=== PATIENT | female | born 1995 | race Two or more races ===

== ENCOUNTER 2023-08-31 10:52 | Observation (INO) ==
--- NOTE | 2023-08-31 12:41 | US ---
EXAM: BIOPHYSICAL PROFILE HISTORY: FETALGROWTH DISCREPANCY IN TWINS; COMPARISON: None. TECHNIQUE: Grayscale and color Doppler imaging of the gravid uterus with biophysical profile analysis FINDINGS: Twin A: A viable single intrauterine is identified with heart tones of 155 beats per minute. Normal amniotic fluid volume is observed with an MARCELINO of 9.1 cm. There is no sonographic evidence for placenta previa. presentation is cephalic. The placenta l ocation is anterior/fundal, grade 2 on this examination. BPP Value(s) Breathin movements: 2 tone: 2 MARCELINO: 2 Total biophysical profile: 8 out of 8. Twin B: A viable single intrauterine is identified with heart tones of 136 beats per minute. Normal amniotic fluid volume is observed with an MARCELINO of 9.1 cm. There is no sonographic evidence for placenta previa. presentation is transverse. The placenta location is anterior/fundal, grade 2 on this examination. BPP Value(s) Breathin movements: 2 tone: 2 MARCELINO: 2 Total biophysical profile: 8 out of 8. IMPRESSION: Twin A: Single, live, IUP with biophysical profile score 8 of 8. Twin B: Single, live, IUP with biophysical profile score 8 of 8. THIS IS AN ELECTRONICALLY VERIFIED FINAL REPORT 08/31/2023 12:38 PM - Electronically signed by Artis Wynn MD
[2023-08-31 12:42] LABS: BASOPHILS # (AUTO) 0.1 X10^3/uL (0.0-0.1); BASOPHILS % (AUTO) 0.5 % (0.2-1.0); EOSINOPHILS # (AUTO) 0.1 x10^3/uL (0.0-0.2); EOSINOPHILS % (AUTO) 1.2 % (0.9-2.9); HEMATOCRIT 35.3 % (36.0-47.0); HEMOGLOBIN 11.4 g/dL (12.0-16.0); LYMPHOCYTES # (AUTO) 1.5 X10^3/uL (1.3-2.9); LYMPHOCYTES % (AUTO) 13.6 % (21.0-51.0); MEAN CORPUSCULAR HEMOGLOBIN 26.4 pg (27.0-34.0); MEAN CORPUSCULAR HGB CONC 32.3 g/dL (33.0-35.0); MEAN CORPUSCULAR VOLUME 81.8 fL (80.0-100.0); MEAN PLATELET VOLUME 8.5 fL (7.4-11.0); MONOCYTES # (AUTO) 0.9 x10^3/uL (0.3-0.8); NEUTROPHILS # (AUTO) 8.7 x10^3/uL (2.2-4.8); NEUTROPHILS % (AUTO) 76.7 % (42.0-75.0); PLATELET COUNT 254 X10^3/uL (150.0-450.0); RED BLOOD COUNT 4.32 X10^6/uL (3.5-5.4); RED CELL DISTRIBUTION WIDTH 27.5 % (11.6-16.5); WHITE BLOOD COUNT 11.3 X10^3/uL (3.6-10.0)
[2023-08-31 12:46] LABS: BLOOD UREA NITROGEN 3 mg/dL (7-18); CALCIUM 8.8 mg/dL (8.5-10.1); CARBON DIOXIDE 22.9 mmol/L (21-32); CHLORIDE 103 mmol/L (98-107); CREATININE 0.38 mg/dL (0.55-1.02); GLUCOSE 80 mg/dL (65-99); POTASSIUM 3.7 mmol/L (3.5-5.1); SODIUM 136 mmol/L (136-145); eGFR NON BLACK RACES > 60 (>60)
[2023-08-31 13:08] LABS: BILIRUBIN,URINE NEGATIVE (NEGATIVE); BLOOD/HEMOGLOBIN,URINE 1+ (NEGATIVE); GLUCOSE, URINE NEGATIVE (NEGATIVE); KETONES,URINE NEGATIVE (NEGATIVE); LEUKOCYTE ESTERASE ,URINE 1+ (NEGATIVE); NITRITES,URINE NEGATIVE (NEGATIVE); PROTEIN,URINE 1+ (NEGATIVE); UROBILINOGEN,URINE NORMAL (NORMAL)
[2023-08-31 13:12] LABS: APPEARANCE,URINE CLEAR (CLEAR); COLOR,URINE YELLOW (YELLOW)
[2023-08-31 13:15] LABS: BACTERIA,URINE TRACE /HPF (NEGATIVE); SQUAMOUS EPITHELIAL CELL,UR MODERATE /HPF (NEGATIVE); TRANSITIONAL EPI CELLS,URINE FEW /HPF (NEGATIVE)
[2023-08-31 13:28] LABS: ANISOCYTOSIS 3+; PLATELET MORPHOLOGY COMMENT NORMAL (NORMAL)
[2023-08-31 13:43] LABS: RAPID PLASMA REAGIN NONREACTIVE (NONREACTIVE)
[2023-08-31 16:45] VITALS: BP 96/51; PULSE 73
== END 2023-08-31 17:28 | disposition home or self-care (01) ==
LOC: LD 10:52 → RAD 10:52
PROVIDERS: ADMIT Obstetrics & Gynecology; ATTEND Obstetrics & Gynecology
DX: Z3A.36 36 weeks gestation of pregnancy; O36.5930 Maternal care for other known or suspected poor fetal growth, third trimester, not applicable or unspecified; O30.003 Twin pregnancy, unspecified number of placenta and unspecified number of amniotic sacs, third trimester